=== PATIENT | male | born 1950 | race Caucasian/White ===

== ENCOUNTER 2021-01-16 13:17 | Emergency (ER) | payer MEDICARE ==
[~2021-01-16 13:17] MED LIST: AMARYL2 MG PO; CITALOPRAM HBR20 MG PO; JANUMET XR 1001 EACH PO; JANUVIA 100MG100 MG PO; LISINOPRIL 10MG10 MG PO; LOVAZA1 GM PO; PRAVASTATIN SOD40 MG PO; SYNTHROID200 MCG PO; SYNTHROID25 MC1 PO
[2021-01-16] MEDS ORDERED: KEFLEX250 MG PO (17:14)
== END 2021-01-16 17:40 | disposition home or self-care (01) ==
LOC: FER 13:17
DX: S61.411A Laceration without foreign body of right hand, initial encounter (principal); E11.9 Type 2 diabetes mellitus without complications; I25.2 Old myocardial infarction; J44.9 Chronic obstructive pulmonary disease, unspecified; Z23 Encounter for immunization; Z87.891 Personal history of nicotine dependence; W45.8XXA Other foreign body or object entering through skin, initial encounter; Y92.009 Unspecified place in unspecified non-institutional (private) residence as the place of occurrence of the external cause
CPT/HCPCS: 90471; 90715

== ENCOUNTER 2021-03-26 15:31 | Emergency (ER) | payer MEDICARE ==
[~2021-03-26 15:31] MED LIST changes: +KEFLEX250 MG PO
[2021-03-26 15:59] LABS: BASOPHIL 0.8 % (0-2); HCT 42.8 % (42.0-52.0); HGB 14.5 g/dl (13.2-18.0); LYMPHOCYTE 33.8 % (15-48); MCHC 33.9 g/dL (32.0-36.0); MCV 85.6 fL (78.0-100.0); MONOCYTE 8.6 % (0-12); MPV 11.4 fL (6.0-9.5); NEUTROPHIL 53.5 % (41-80); NRBC 0; PLT 201 K/uL (150-400); RDW 14.3 % (11.5-14.0); WBC 7.6 K/uL (4.0-10.5)
[2021-03-26 16:07] LABS: INR 1.01 (0.9-1.2); PROTHROMBIN TIME 12.6 SECONDS (11.4-13.6); PTT 28.4 SECONDS (22.2-34.7)
[2021-03-26 16:15] LABS: ALBUMIN 3.8 g/dL (3.4-5.0); BILIRUBIN - TOTAL 0.4 mg/dL (0.2-1.0); BUN/CREAT RATIO (CALC) 12.5 RATIO; CREATININE 0.88 mg/dL (0.67-1.17); GLOBULIN (CALCULATION) 3.7 g/dL; POTASSIUM 4.1 mmol/L (3.5-5.1); TOTAL PROTEIN 7.5 g/dL (6.4-8.2)
[2021-03-26] MEDS ORDERED: PROTONIX 40MG T40 MG PO (18:23)
== END 2021-03-26 18:39 | disposition home or self-care (01) ==
LOC: FER 15:31
PROVIDERS: Emergency Medicine
DX: R07.89 Other chest pain (principal); I25.2 Old myocardial infarction; E11.9 Type 2 diabetes mellitus without complications; J44.9 Chronic obstructive pulmonary disease, unspecified; Z87.891 Personal history of nicotine dependence
CPT/HCPCS: 36415; 71045; 80053; 84484; 85025; 85610; 85730; 93005; J7030

== ENCOUNTER 2022-03-17 09:41 | Emergency (ER) | payer MEDICARE ==
[~2022-03-17 09:41] MED LIST changes: +PROTONIX 40MG T40 MG PO
[2022-03-17 10:08] LABS: BASOPHIL 0.8 % (0-2); EOSINOPHIL 2.8 % (0-7); HCT 44.5 % (42.0-52.0); HGB 14.5 g/dl (13.2-18.0); LYMPHOCYTE 28.9 % (15-48); MCH 28.6 pg (25.0-31.0); MCHC 32.6 g/dL (32.0-36.0); MCV 87.8 fL (78.0-100.0); MONOCYTE 5.9 % (0-12); MPV 10.8 fL (6.0-9.5); NEUTROPHIL 61.1 % (41-80); NRBC 0; PLT 226 K/uL (150-400); RBC 5.07 M/uL (4.70-6.00); RDW 14.4 % (11.5-14.0); WBC 8.8 K/uL (4.0-10.5)
[2022-03-17 10:13] LABS: INR 0.99 (0.9-1.2); PROTHROMBIN TIME 12.5 SECONDS (11.8-13.4); PTT 27.5 SECONDS (24.4-34.7)
[2022-03-17 10:14] LABS: D-DIMER 0.27 ug/mLFEU (0.00-0.41)
[2022-03-17 10:32] LABS: ALBUMIN 3.7 g/dL (3.4-5.0); BILIRUBIN - TOTAL 0.4 mg/dL (0.2-1.0); BUN/CREAT RATIO (CALC) 14.6 RATIO; CREATININE 0.89 mg/dL (0.67-1.17); FT4 (FREE T4) 0.6 ng/dL (0.76-1.46); GLOBULIN (CALCULATION) 3.2 g/dL; MAGNESIUM 1.8 mg/dL (1.8-2.4); TOTAL PROTEIN 6.9 g/dL (6.4-8.2)
== END 2022-03-17 13:41 | disposition home or self-care (01) ==
LOC: FER 09:41
PROVIDERS: Emergency Medicine
DX: R07.89 Other chest pain (principal); I25.10 Atherosclerotic heart disease of native coronary artery without angina pectoris; I25.2 Old myocardial infarction; J44.9 Chronic obstructive pulmonary disease, unspecified; E11.9 Type 2 diabetes mellitus without complications; Z79.4 Long term (current) use of insulin; Z95.5 Presence of coronary angioplasty implant and graft; Z87.891 Personal history of nicotine dependence; Z88.5 Allergy status to narcotic agent
CPT/HCPCS: 36415; 71045; 80053; 83690; 83735; 83880; 84439; 84484; 85025; 85379; 85610; 85730; 93005